=== PATIENT | male | born 1975 | race Native Hawaiian/Other Pacific Islander ===

== ENCOUNTER 2018-03-16 14:26 | Emergency (ER) | payer OTHER ==
[2018-03-16 14:41] VITALS: O2SAT 99
--- NOTE | 2018-03-16 16:32 | RAD ---
PROCEDURE: Right Hand Radiographs. HISTORY: s/p fall - r/o fx COMPARISON: None available. FINDINGS: BONES: Irregularity noted at the level of the distal 5th digit possibly related to remote fracture; correlate point tenderness as acute fracture is not excluded. The remainder the visualized osseous structures appear intact without acute displaced fracture. JOINTS: No dislocation. SOFT TISSUES: Soft tissue swelling. No evidence of radiopaque foreign body. OTHER FINDINGS: None. IMPRESSION: Irregular appearance of the distal 5th phalanx possibly related to remote injury. Correlate for point tenderness is acute fracture is not excluded. Soft tissue swelling.
--- NOTE | 2018-03-16 16:53 | CT ---
Date of service: 03/16/2018 PROCEDURE: CT HEAD WITHOUT CONTRAST. HISTORY: s/p fall - r/o ICH and fx COMPARISON: Correlation made with concurrent CT scan of the orbits. TECHNIQUE: Axial computed tomography images were obtained through the head/brain without intravenous contrast. Radiation dose: Total exam DLP = 820.82 mGy-cm. This CT exam was performed using one or more of the following dose reduction techniques: Automated exposure control, adjustment of the mA and/or kV according to patient size, and/or use of iterative reconstruction technique. FINDINGS: HEMORRHAGE: No acute parenchymal, subarachnoid or extra-axial hemorrhage. BRAIN: No evidence of large acute infarct. . There is however a rounded approximately 14 mm x 11.6 mm x 10 mm heterogeneous intraventricular mass within the at anterior aspect of the left lateral ventricle -frontal horn junction of uncertain etiology however differential diagnosis would include intraventricular meningioma, ependymoma, subependymoma , central neurocytoma. Choroid plexus papilloma typically occur in the 4th ventricle and therefore less likely. Choroid plexus carcinoma also less likely. Recommend followup of pre and post-contrast MRI of the brain. VENTRICLES: No obstructive hydrocephalus. CALVARIUM: Calvarium intact PARANASAL SINUSES: Unremarkable as visualized. No significant inflammatory changes. MASTOID AIR CELLS: Unremarkable as visualized. No inflammatory changes. Silverio N0 back nearly OTHER FINDINGS: None. IMPRESSION: No acute intracranial hemorrhage. There is a 14 mm mass within the left anterior body left lateral ventricle on certain etiology though the lesion may represent an ependymoma/ subependymoma intraventricular meningioma. . See above discussion for additional differential diagnostic considerations. No evidence hydrocephalus. Discussed with Dr. Paige at approximately 4:40 5 p.m. with written down and read back verification.
--- NOTE | 2018-03-16 17:13 | CT ---
Date of service: 03/16/2018. PROCEDURE: CT MAXILLOFACIAL BONES WITHOUT CONTRAST. HISTORY: Status post fall, rule out fracture COMPARISON: Comparison made with concurrent CT scan of the brain TECHNIQUE: Contiguous axial CT images of the maxillofacial bones were obtained. Coronal and sagittal reformats were generated.. Laxmi and to Ed Radiation dose: Total exam DLP = 797.83 mGy-cm. This CT exam was performed using one or more of the following dose reduction techniques: Automated exposure control, adjustment of the mA and/or kV according to patient size, and/or use of iterative reconstruction technique. FINDINGS: NASAL BONES: Middle nasal bone fractures identified ORBITS: Orbits and contents there appears to be mild periorbital soft tissue swelling. Globes intact and lenses appropriately located. There are no retrobulbar hemorrhages or collections. PARANASAL SINUSES/ MASTOIDS: There lower eyelid near complete opacification changes both maxillary antra the the the secondary pre-existing the chronic sinus disease. Hypertrophy of the nasal mucosa particularly left greater than right. . . Rule out nasal polyps. There is a prominent right middle turbinate maicol bullosa. Minor mucosal thickening seen within a few ethmoid air cells MAXILLA: Mild premaxillary soft tissue swelling. Bony maxilla intact. MANDIBLE/ TEMPOROMANDIBULAR JOINTS: Unremarkable. SKULL BASE: Unremarkable. TEMPORAL BONES: Middle ears and mastoid grossly unremarkable. OTHER FINDINGS: Note made of a few tiny tonsilliths within the palatine tonsils bilaterally. Poor dentition with what appears to represent a radicular cyst surrounding roots of the left mandibular 2nd molar IMPRESSION: No evidence of acute fracture. There is subtotal opacification of both maxillary antra likely related to pre-existing chronic sinusitis. . Minor mucosal thickening also seen at few ethmoid air cells. Hypertrophy of the nasal mucosa left greater than right. Rule out nasal polyps Mild premaxillary and periorbital soft tissue swelling.
--- NOTE | 2018-03-16 17:22 | C.PDOC ---
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 He c/ o pain to the left side of face and right hand. The patient is questionable about LOC. He denies vision changes or any symptoms prior to fall. The patient reports his right hand has been swollen for a "long time". He offers no further medical complaints at this time. Time Seen by Provider: 03/16/18 15:25 Chief Complaint (Nursing): Finger,Hand,&Wrist History Per: Other (Friend) History/Exam Limitations: language barrier Onset/Duration Of Symptoms: Mins Current Symptoms Are (Timing): Still Present Quality: "Pain" Recent travel outside of the [place]: No Additional History Per: Patient Past Medical History Reviewed: Historical Data, Nursing Documentation, Vital Signs Vital Signs: Last Vital Signs Temp 98.0 F 03/16/18 18:26 Pulse 60 03/16/18 18:26 Resp 16 03/16/18 18:26 BP 124/80 03/16/18 18:26 Pulse Ox 99 03/16/18 18:38 - Medical History PMH: No Chronic Diseases Surgical History: No Surg Hx Family History: States: Unknown Family Hx - Social History Hx Alcohol Use: No Hx Substance Use: No - Immunization History Hx Tetanus Toxoid Vaccination: No Hx Influenza Vaccination: No Hx Pneumococcal Vaccination: No Review Of Systems Except As Marked, All Systems Reviewed And Found Negative. Constitutional: Negative for: Fever Eyes: Negative for: Vision Change Musculoskeletal: Positive for: Hand Pain (Right Hand Pain), Other (Left sided facial pain ) Neurological: Negative for: Weakness, Numbness, Headache Physical Exam - Physical Exam Appears: Well, Non-toxic, No Acute Distress Skin: Other (multiple sebaceous cyst) Head: Atraumatic, Normacephalic, No Abrasion, No Laceration Eye(s): bilateral: PERRL, EOMI Ear(s): Bilateral: Normal Oral Mucosa: Moist Neck: Normal, Supple Chest: Symmetrical Cardiovascular: Rhythm Regular, No Murmur Respiratory: Normal Breath Sounds, No Rales, No Rhonchi, No Wheezing Gastrointestinal/Abdominal: Soft, No Tenderness, No Distention Extremity: Tenderness (Right hand thenar eminence tender to touch), Swelling ( right hand thenar eminence) Extremity: Bilateral: Normal Color And Temperature, Normal ROM Pulses: Left Radial: Normal, Right Radial: Normal Neurological/Psych: Oriented x3, Normal Speech, Other (no gross focal deficit) Gait: Steady ED Course And Treatment O2 Sat by Pulse Oximetry: 99 (RA) Pulse Ox Interpretation: Normal - Other Rad Right Hand X-Ray: Viewed By Me, Read By Radiologist Interpretation: FINDINGS: BONES: Irregularity noted at the level of the distal 5th digit possibly related to remote fracture; correlate point tenderness as acute fracture is not excluded. The remainder the visualized osseous structures appear intact without acute displaced fracture. JOINTS: No dislocation. SOFT TISSUES: Soft tissue swelling. No evidence of radiopaque foreign body. OTHER FINDINGS: None. IMPRESSION: Irregular appearance of the distal 5th phalanx possibly related to remote injury. Correlate for point tenderness is acute fracture is not excluded. Soft tissue swelling. - CT Scan/US Orbit Other Rad Studies (CT/US): Read By Radiologist, Radiology Report Reviewed CT/US Interpretation: FINDINGS: NASAL BONES: Middle nasal bone fractures identified. ORBITS: Orbits and contents there appears to be mild periorbital soft tissue swelling. Globes intact and lenses appropriately located. There are no retrobulbar hemorrhages or collections. PARANASAL SINUSES/ MASTOIDS: There lower eyelid near complete opacification changes both maxillary antra the the the secondary pre-existing the chronic sinus disease. Hypertrophy of the nasal mucosa particularly left greater than right. . . Rule out nasal polyps. There is a prominent right middle turbinate maicol bullosa. Minor mucosal thickening seen within a few ethmoid air cells. MAXILLA: Mild premaxillary soft tissue swelling. Bony maxilla intact. MANDIBLE/ TEMPOROMANDIBULAR JOINTS : Unremarkable. SKULL BASE: Unremarkable. TEMPORAL BONES: Middle ears and mastoid grossly unremarkable. OTHER FINDINGS: Note made of a few tiny tonsilliths within the palatine tonsils bilaterally. Poor dentition with what appears to represent a radicular cyst surrounding roots of the left mandibular 2nd molar. IMPRESSION: No evidence of acute fracture. There is subtotal opacification of both maxillary antra likely related to pre-existing chronic sinusitis. . Minor mucosal thickening also seen at few ethmoid air cells. Hypertrophy of the nasal mucosa left greater than right. Rule out nasal polyps. Mild premaxillary and periorbital soft tissue swelling. Head Other Rad Studies (CT/US): Read By Radiologist, Radiology Report Reviewed CT/US Interpretation: FINDINGS: HEMORRHAGE: No acute parenchymal, subarachnoid or extra-axial hemorrhage. BRAIN: No evidence of large acute infarct. . There is however a rounded approximately 14 mm x 11.6 mm x 10 mm heterogeneous intraventricular mass within the at anterior aspect of the left lateral ventricle -frontal horn junction of uncertain etiology however differential diagnosis would include intraventricular meningioma, ependymoma, subependymoma , central neurocytoma. Choroid plexus papilloma typically occur in the 4th ventricle and therefore less likely. Choroid plexus carcinoma also less likely. Recommend followup of pre and post-contrast MRI of the brain. VENTRICLES: No obstructive hydrocephalus. CALVARIUM: Calvarium intact. PARANASAL SINUSES: Unremarkable as visualized. No significant inflammatory changes. MASTOID AIR CELLS: Unremarkable as visualized. No inflammatory changes. Silverio N0 back nearly. OTHER FINDINGS: None. IMPRESSION: No acute intracranial hemorrhage. There is a 14 mm mass within the left anterior body left lateral ventricle on certain etiology though the lesion may represent an ependymoma/ subependymoma intraventricular meningioma. . See above discussion for additional differential diagnostic considerations. No evidence hydrocephalus. Medical Decision Making Medical Decision Making: Impression: 43 y/o male c/o left sided facial pain and pain/ swelling to the right hand s/p falling down 4 stairs Plan: - Head CT -Orbits CT -Right hand X-Ray Spoke to patient, with friend's help in translation, extensively about CT results and answered questions. Patient was advised to follow up promptly with knee surgeon. Spoke to Dr. Adkins about case and he is aware of referral. Disposition - Disposition Referrals: [facility] [Outside] [facility] [Outside] Aniceto Adkins MD [Staff Provider] - Disposition: HOME/ ROUTINE Disposition Time: 17:15 Condition: GOOD Additional Instructions: MARYCRUZ BROWN, thank you for letting us take care of you today. The emergency medical care you received today was directed at your acute symptoms. If you were prescribed any medication, please fill it and take as directed. It may take several days for your symptoms to resolve. Return to the Emergency Department if your symptoms worsen, do not improve, or if you have any other problems. Please contact your doctor or call one of the physicians/clinics you have been referred to that are listed on the Patient Visit Information form that is included in your discharge packet. Bring any paperwork you were given at discharge with you along with any medications you are taking to your follow up visit. Our treatment cannot replace ongoing medical care by a primary care provider outside of the emergency department. Thank you for allowing the [facility] team to be part of your care today. I have spoken to the neurosurgeon about you and they are expecting you to call the office to make an appointment. Please follow up with the neurosurgeon and our clinic in 2-3 days for re- evaluation and further management. Prescriptions: Ibuprofen [Motrin] 600 mg PO Q6 PRN #20 tab PRN Reason: Pain, Moderate (4-7) Instructions: Ependymoma (DC) Forms: [employer] ([place] Citizen) - Clinical Impression Clinical Impression: Hand sprain, Brain tumor - PA / PEST CONTROLLER / Resident Statement MD/DO has reviewed & agrees with the documentation as recorded. - Scribe Statement The provider has reviewed the documentation as recorded by the Scribe (Ailyn Frederick) Provider Attestation: All medical record entries made by the Scribe were at my direction and personally dictated by me. I have reviewed the chart and agree that the record accurately reflects my personal performance of the history, physical exam, medical decision making, and the department course for this patient. I have also personally directed, reviewed, and agree with the discharge instructions and disposition.
[2018-03-16 18:28] VITALS: BP 124/80; PULSE 60; RESP 16; TEMP 98
== END 2018-03-16 18:27 | disposition home or self-care (01) ==
LOC: C.ER 14:26
DX: S63.91XA Sprain of unspecified part of right wrist and hand, initial encounter (principal); W10.9XXA Fall (on) (from) unspecified stairs and steps, initial encounter; D49.6 Neoplasm of unspecified behavior of brain